=== PATIENT | female | born 1970 | race Caucasian/White ===

== ENCOUNTER 2017-05-31 15:44 | Outpatient (CLI) | payer BC ==
[~2017-05-31 15:44] MED LIST: Gadobenate Dimeglumine 529 MG/1 ML (20ML VIAL) ONE
--- NOTE | 2017-05-31 17:50 | MRI ---
MRI OF BRAIN 05/31/17 CLINICAL HISTORY: Nightly headaches. FINDINGS: Appropriate size of ventricular system. No midline shift or acute territorial infarction. There is no intracranial hemorrhage. No evidence of an enhancing intra-axial mass. Mild paranasal sinus mucosal thickening is present. Retention cyst is seen at the sphenoid sinus. The imaged skull base flow voids are patent. Sellar contents are unremarkable. IMPRESSION: No acute intracranial abnormalities. POS: [facility]
== END 2017-05-31 15:45 | disposition home or self-care (01) ==
LOC: MRI 15:44
PROVIDERS: ATTEND Family Medicine
DX: R51 Headache (principal)
CPT/HCPCS: 70553; A9579

== ENCOUNTER 2018-04-19 08:01 | Outpatient (CLI) | payer BC | END 2018-04-19 08:02 | disposition home or self-care (01) | LOC: BICMAMMO 08:01 | PROVIDERS: ATTEND Obstetrics & Gynecology | DX: Z12.31 Encounter for screening mammogram for malignant neoplasm of breast (principal) | CPT/HCPCS: 77063; 77067 ==

== ENCOUNTER 2019-04-25 13:03 | Outpatient (CLI) | payer BC ==
--- NOTE | 2019-04-25 13:56 | MMO ---
Bilateral MAMMO Bilat Screen [facility]. CLINICAL HISTORY: Patient is 49 years old and is seen for screening. The patient has no family history of breast cancer. The patient has no personal history of cancer. VIEWS: The views performed were: bilateral craniocaudal with tomosynthesis and bilateral mediolateral oblique with tomosynthesis. FILMS COMPARED: The present examination has been compared to prior imaging studies performed at [facility] on 03/25/2015, 03/31/2016, 04/13/2017 and 04/19/2018. This study has been interpreted with the assistance of computer-aided detection. MAMMOGRAM FINDINGS: There are scattered fibroglandular densities. There are no suspicious masses, suspicious calcifications, or new areas of architectural distortion. IMPRESSION: THERE IS NO MAMMOGRAPHIC EVIDENCE OF MALIGNANCY. A ROUTINE FOLLOW-UP MAMMOGRAM IN 1 YEAR IS RECOMMENDED. THE RESULTS OF THIS EXAM WERE SENT TO THE PATIENT. ACR BI-RADS Category 1 - Negative MAMMOGRAPHY NOTE: 1. A negative mammogram report should not delay a biopsy if a dominant of clinically suspicious mass is present. 2. Approximately 10% to 15% of breast cancers are not detected by mammography. 3. Adenosis and dense breasts may obscure an underlying neoplasm. Reported by: TERRA COLUNGA MD Electonically Signed: [id number]
== END 2019-04-25 13:04 | disposition home or self-care (01) ==
LOC: BICMAMMO 13:03
PROVIDERS: ATTEND Obstetrics & Gynecology
DX: Z12.31 Encounter for screening mammogram for malignant neoplasm of breast (principal)
CPT/HCPCS: 77063; 77067

== ENCOUNTER 2020-04-30 12:20 | Outpatient (CLI) | payer BC ==
--- NOTE | 2020-04-30 13:36 | MMO ---
Bilateral MAMMO Bilat Screen [facility]. CLINICAL HISTORY: Patient is 50 years old and is seen for screening. The patient has no family history of breast cancer. The patient has no personal history of cancer. VIEWS: The views performed were: bilateral craniocaudal with tomosynthesis and bilateral mediolateral oblique with tomosynthesis. FILMS COMPARED: The present examination has been compared to prior imaging studies performed at [facility] on 03/31/2016, 04/13/2017, 04/19/2018 and 04/25/2019. This study has been interpreted with the assistance of computer-aided detection. MAMMOGRAM FINDINGS: There are scattered fibroglandular densities. There are no suspicious masses, suspicious calcifications, or new areas of architectural distortion. IMPRESSION: THERE IS NO MAMMOGRAPHIC EVIDENCE OF MALIGNANCY. A ROUTINE FOLLOW-UP MAMMOGRAM IN 1 YEAR IS RECOMMENDED. THE RESULTS OF THIS EXAM WERE SENT TO THE PATIENT. ACR BI-RADS Category 1 - Negative MAMMOGRAPHY NOTE: 1. A negative mammogram report should not delay a biopsy if a dominant of clinically suspicious mass is present. 2. Approximately 10% to 15% of breast cancers are not detected by mammography. 3. Adenosis and dense breasts may obscure an underlying neoplasm. Reported by: CHARISSE LAW MD Electonically Signed: [id number]
== END 2020-04-30 12:21 | disposition home or self-care (01) ==
LOC: BICMAMMO 12:20
PROVIDERS: ATTEND Obstetrics & Gynecology
DX: Z12.31 Encounter for screening mammogram for malignant neoplasm of breast (principal)
CPT/HCPCS: 77063; 77067

== ENCOUNTER 2025-05-15 13:10 | Outpatient (CLI) | payer BC | END 2025-05-15 13:11 | disposition home or self-care (01) | LOC: SCSBT 13:10 | PROVIDERS: ATTEND Internal Medicine Rheumatology | DX: Z78.0 Asymptomatic menopausal state (principal) | CPT/HCPCS: 77080 ==